=== PATIENT | male | born 1960 | race Caucasian/White ===

== ENCOUNTER 2021-01-23 13:43 | Emergency (ER) | payer OTHER, MEDICARE, MEDICAID ==
[~2021-01-23] VITALS: Ht 198.1 cm; Wt 88.6 kg
[~2021-01-23 13:43] MED LIST: ASPI-424 PO; HYDR-3424 PO
[2021-01-23 14:53] VITALS: BP 133/81
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
[2021-01-23] MEDS ORDERED: HYDROcodone/APAP 10/325 1 TAB TABLET PO ONE (15:45)
[2021-01-23] MEDS ORDERED: CYCLOBENZAPRINE 10 MG TABLET. PO ONE (15:45)
--- NOTE | 2021-01-23 15:55 | RAD ---
Three views left shoulder History: pain Internally and externally rotated AP of shoulder obtained, as well as "Y" view. The glenohumeral relationship is normal. Density projecting above the glenoid could be chondrocalcino sis. Remaining visualized osseous structures appear normal. Impression: No acute findings. end impression Electronically signed by: Tk Power III, MD (01/23/2021 3:52 PM) [id number]
== END 2021-01-23 16:20 | disposition home or self-care (01) ==
LOC: ER 13:48
DX: M25.512 Pain in left shoulder (principal); V59.59XA Passenger in pick-up truck or van injured in collision with other motor vehicles in traffic accident, initial encounter; Y93.89 Activity, other specified; Y92.89 Other specified places as the place of occurrence of the external cause; Y99.8 Other external cause status
CPT/HCPCS: 73030; 99283